=== PATIENT | male | born 1965 | race Caucasian/White ===

== ENCOUNTER 2023-03-03 00:36 | Inpatient (IN) | payer OTHER ==
[~2023-03-03] VITALS: Ht 175.3 cm; Wt 86.2 kg
[~2023-03-03 00:36] MED LIST: CEPH-588 PO; IBUP-2213 PO
[2023-03-03 00:46] VITALS: BP 131/84; PULSE 91; RESP 20; TEMP 102.3; O2SAT 98
--- NOTE | 2023-03-03 00:55 | NUR ---
PT TO BED 11 VIA W/C. DAUGHTER WITH PT.
[2023-03-03] MEDS ORDERED: ACETAMINOPHEN EXTRA STRENGTH 500 MG TAB PO ONE (01:00)
--- NOTE | 2023-03-03 01:05 | NUR ---
DR. ARECHIGA AT BEDSIDE.
--- NOTE | 2023-03-03 01:11 | NUR ---
BLOOD DRAWB ABD SENT TO LAB
[2023-03-03 01:35] LABS: BASOPHILS # (AUTO) 0.1 K/uL (0.00-0.22); BASOPHILS % (AUTO) 0.7 % (0.0-2.0); EOSINOPHILS # (AUTO) 0.1 K/uL (0-0.4); EOSINOPHILS % (AUTO) 1.1 % (0.0-4.0); HEMATOCRIT 36.8 % (36-52); HEMOGLOBIN 12.5 g/dL (12.0-18.0); LYMPHOCYTES # (AUTO) 1.5 K/uL (2.0-11.5); LYMPHOCYTES % (AUTO) 14.6 % (20.5-51.1); MEAN CORPUSCULAR HEMOGLOBIN 32 pg (27-31); MEAN CORPUSCULAR HGB CONC 34 g/dL (33-37); MONOCYTES % (AUTO) 9.3 % (1.7-9.3); NEUTROPHILS # (AUTO) 7.7 K/uL (1.8-7.7); NEUTROPHILS % (AUTO) 74.3 % (42.2-75.2); PLATELET COUNT (AUTO) 261 K/uL (140-450); RED BLOOD CELL COUNT(AUTO) 3.95 MIL/uL (4.20-6.10); RED CELL DISTRIBUTION WIDTH 13.8 % (11.6-13.7); WHITE BLOOD COUNT (AUTO) 10.3 K/uL (4.8-10.8)
[2023-03-03 01:45] LABS: ALBUMIN 2.8 g/dL (3.4-5.0); ANION GAP 14.8 (8-16); CARBON DIOXIDE 25.3 mmol/L (21-32); CREATININE 0.9 mg/dL (0.6-1.3); POTASSIUM 3.1 mmol/L (3.5-5.1); TOTAL BILIRUBIN 1.1 mg/dL (0.0-1.0)
--- NOTE | 2023-03-03 02:27 | NUR ---
X-Ray at bedside.
[2023-03-03] MEDS ORDERED: KETOROLAC 30 MG/ML VIAL IVP ONE (02:30)
[2023-03-03] MEDS ORDERED: cefTRIAXone 1,000 MG VIAL ONE (02:30)
[2023-03-03] MEDS ORDERED: POTASSIUM CHLORIDE 10 MEQ TABER PO ONE (02:55)
[2023-03-03] MEDS ORDERED: VANCOMYCIN PER PHARMACY MC PRN (04:15)
[2023-03-03] MEDS ORDERED: NACL 0.9% 1,000 ML IV ONE (04:15)
--- NOTE | 2023-03-03 04:41 | NUR ---
Patient will be admitted to care of DR. SMITH. Admited to MED SURG. Will go to room 120-B. Belongings list completed. Report to AKUA DEMPSEY.
[2023-03-03 04:52] VITALS: PULSE 66; RESP 20; O2SAT 98
--- NOTE | 2023-03-03 04:52 | NUR ---
PT TRANSPORTED FROM ER VIA WHEEL CHAIR. PT IS AAOX4 YORUBA SPEAKER. PT IS ON RA SATING 96%. PT ABLE TO AMBULATE. PT HAS IV ON LEFT FOREARM 20 GAUGE SALINE LOCK. PT CAME IN WITH COMPLAINS OF RIGHT KNEE REDNESS AND SWELLING SINCE SUNDAY. VISIBLE REDNESS AND SWELLING FROM RIGHT KNEW DESCENDING DOWN TO LEG. POC DISCUSSED. CALL LIGHT WITHIN REACH. WILL CONTINUE TO MONITOR THE PT.
[2023-03-03 05:00] VITALS: BP 129/78; PULSE 66; RESP 18; TEMP 97; O2SAT 96
[2023-03-03] MEDS ORDERED: VANCOMYCIN 1GM/DEXT 5% PREMIX 200 ML IV SCH (06:30)
--- NOTE | 2023-03-03 07:10 | NUR ---
received patient from pm nurse for continuation of care.
[2023-03-03 08:00] VITALS: BP 118/75; PULSE 71; RESP 17; TEMP 98.5; O2SAT 98
[2023-03-03] MEDS ORDERED: MAG SULF 2000 MG/WATER PREMIX 50 ML IV PRN (08:00)
[2023-03-03] MEDS: CEFEPIME 2,000 MG in DEXTROSE 5% 100 ML IV SCH ×2 (09:37→20:17)
[2023-03-03] MEDS: VANCOMYCIN 1,000 MG in DEXTROSE 5% 250 ML IV SCH ×2 (11:00→21:57)
--- NOTE | 2023-03-03 13:00 | NUR ---
PATIENT MOVED FROM 120B TO 104B DUE TO PLUMBING ISSUES. PATIENT STABLE, NO VERBALIZATION OF COMPLAINTS. COLD COMPRESS APPLIED ON KNEE
[2023-03-03 16:00] VITALS: BP 136/82; PULSE 76; RESP 20; TEMP 97.1; O2SAT 97
[2023-03-03] MEDS ORDERED: DOCUSATE SODIUM 100 MG GELCAP PO PRN (17:30)
[2023-03-03] MEDS ORDERED: ZOLPIDEM 10 MG TAB PO PRN (17:30)
[2023-03-03] MEDS ORDERED: ONDANSETRON 4 MG/2 ML VIAL IVP PRN (17:30)
[2023-03-03] MEDS ORDERED: POTASSIUM CHLORIDE 10 MEQ TABER PO PRN (17:30)
[2023-03-03] MEDS ORDERED: LORazepam 2 MG/ML VIAL IVP PRN (17:30)
[2023-03-03] MEDS: MORPHINE SULFATE 2 MG/ML SYR IVP PRN (18:37)
--- NOTE | 2023-03-03 19:21 | NUR ---
ENDORSED PATIENT TO PM NURSE FOR CONTINUATION OF CARE.
--- NOTE | 2023-03-03 19:30 | NUR ---
RECEIVED REPORT FROM DAY SHIFT RN FOR CONTINUITY OF CARE. PT IS AWAKE AND ALERT. FAMILY BY BEDSIDE. NOT IN ANY DISTRESS. DENIES PAIN AT THIS TIME. PAIN MEDICATION WAS GIVEN EARLIER BY DAY SHIFT NURSE WHICH HELPED FOR HIS RIGHT KNEE. PT HAS IV ON LEFT FOREARM 20 GAUGE SALINE LOCK. RIGHT KNEE TO WEINER REDNESS. POC DISCUSSED. WILL CONTINUE TO MONITOR THE PT.
[2023-03-03] MEDS: ACETAMINOPHEN 325 MG TAB PO PRN (19:38)
[2023-03-03 20:00] VITALS: BP 133/71; PULSE 93; RESP 18; RESP 20; TEMP 101.4; O2SAT 96
--- NOTE | 2023-03-03 21:00 | NUR ---
PT HAD FEVER IN BEGINNING OF SHIFT 101.4 TYLENOL WAS GIVEN. COOLING MEASURES TAKEN. RECHECKED PT TEMPERATURE AND DROP TO 99.4.
[2023-03-04] MEDS: MORPHINE SULFATE 2 MG/ML SYR IVP PRN (01:51)
--- NOTE | 2023-03-04 01:51 | NUR ---
PT COMPLAINED OF RIGHT KNEE PAIN 10/10. MORPHINE WAS GIVEN.
[2023-03-04 04:00] VITALS: BP 122/74; PULSE 75; RESP 18; TEMP 99; O2SAT 95
--- NOTE | 2023-03-04 07:16 | NUR ---
ENDORSED PT TO DAY SHIFT RN FOR CONTINUITY OF CARE. PT IS STABLE.
--- NOTE | 2023-03-04 07:40 | NUR ---
RECEIVED PATIENT FROM PM NURSE FOR CONTINUATION OF CARE
[2023-03-04 07:44] LABS: BASOPHILS # (AUTO) 0.1 K/uL (0.00-0.22); BASOPHILS % (AUTO) 0.5 % (0.0-2.0); EOSINOPHILS # (AUTO) 0.2 K/uL (0-0.4); EOSINOPHILS % (AUTO) 1.5 % (0.0-4.0); HEMATOCRIT 37.7 % (36-52); HEMOGLOBIN 12.5 g/dL (12.0-18.0); LYMPHOCYTES # (AUTO) 2.3 K/uL (2.0-11.5); LYMPHOCYTES % (AUTO) 20.1 % (20.5-51.1); MEAN CORPUSCULAR HEMOGLOBIN 31 pg (27-31); MEAN CORPUSCULAR HGB CONC 33 g/dL (33-37); MEAN CORPUSCULAR VOLUME 93.5 fL (80-94); MONOCYTES % (AUTO) 9.2 % (1.7-9.3); NEUTROPHILS # (AUTO) 7.7 K/uL (1.8-7.7); NEUTROPHILS % (AUTO) 68.7 % (42.2-75.2); PLATELET COUNT (AUTO) 321 K/uL (140-450); RED BLOOD CELL COUNT(AUTO) 4.04 MIL/uL (4.20-6.10); RED CELL DISTRIBUTION WIDTH 13.8 % (11.6-13.7); WHITE BLOOD COUNT (AUTO) 11.3 K/uL (4.8-10.8)
[2023-03-04 07:47] LABS: ANION GAP 11.2 (8-16); CARBON DIOXIDE 28.5 mmol/L (21-32); CREATININE 0.8 mg/dL (0.6-1.3); POTASSIUM 3.7 mmol/L (3.5-5.1)
[2023-03-04 08:00] VITALS: PULSE 82; RESP 20; TEMP 99.8; O2SAT 97
--- NOTE | 2023-03-04 09:35 | NUR ---
PATIENT HAS BEEN SCREENED AND CATEGORIZED LOW NUTRITION RISK. PATIENT WILL BE SEEN WITHIN 7 DAYS OF ADMISSION. 03/03/23-03/10/[address]
[2023-03-04] MEDS: CEFEPIME 2,000 MG in DEXTROSE 5% 100 ML IV SCH ×2 (10:08→20:25)
[2023-03-04] MEDS: VANCOMYCIN 1,000 MG in DEXTROSE 5% 250 ML IV SCH ×2 (11:05→19:00)
--- NOTE | 2023-03-04 15:08 | NUR ---
03/04/23 RD INITIAL ASSESSMENT COMPLETED. PLEASE REFER TO NUTRITION ASSESSMENT UNDER CARE ACTIVITY FOR ESTIMATED NUTRITIONAL NEEDS. 1. CONTINUE [facility] DIET TOLERATED 2. MONITOR BLOOD GLUCOSE 3. RD TO FOLLOW-UP 3-5 DAYS, MODERATE RISK DREW LORA RD Addendum: 03/04/23 at [address] NOTE WRITTEN IN ERROR FOR WRONG PATIENT
[2023-03-04 16:00] VITALS: BP 127/85; PULSE 78; RESP 18; TEMP 97.9; O2SAT 98
--- NOTE | 2023-03-04 19:20 | NUR ---
RECEIVED PT REPORT FROM DAY SHIFT NURSE. PT IS AWAKE AND ALERT. PT IS EGYPTIAN SPEAKING. PT ABLE TO AMBULATE TO RESTROOM INDEPENDENTLY. IV SITE IS ON LEFT UPPER ARM 18G, INTACT AND PATENT. IV FLUID NORMAL SALINE INFUSING WELL AT 100ML/HR. PT IS CONTINENT.
--- NOTE | 2023-03-04 19:20 | NUR ---
ENDORSED PATIENT TO PM NURSE FOR CONTINUATION OF CARE
[2023-03-04 20:00] VITALS: BP 134/87; PULSE 78; RESP 18; TEMP 36.2; O2SAT 97
[2023-03-05] MEDS: VANCOMYCIN 1,000 MG in DEXTROSE 5% 250 ML IV SCH ×2 (03:18→11:25)
[2023-03-05 06:55] LABS: BASOPHILS # (AUTO) 0.1 K/uL (0.00-0.22); BASOPHILS % (AUTO) 0.9 % (0.0-2.0); EOSINOPHILS # (AUTO) 0.2 K/uL (0-0.4); EOSINOPHILS % (AUTO) 2.2 % (0.0-4.0); HEMATOCRIT 37.8 % (36-52); HEMOGLOBIN 12.8 g/dL (12.0-18.0); LYMPHOCYTES # (AUTO) 2.2 K/uL (2.0-11.5); LYMPHOCYTES % (AUTO) 21.2 % (20.5-51.1); MEAN CORPUSCULAR HEMOGLOBIN 32 pg (27-31); MEAN CORPUSCULAR HGB CONC 34 g/dL (33-37); MEAN CORPUSCULAR VOLUME 93.9 fL (80-94); MONOCYTES # (AUTO) 0.9 K/uL (0.8-1.0); MONOCYTES % (AUTO) 9.1 % (1.7-9.3); NEUTROPHILS # (AUTO) 6.9 K/uL (1.8-7.7); NEUTROPHILS % (AUTO) 66.6 % (42.2-75.2); PLATELET COUNT (AUTO) 357 K/uL (140-450); RED BLOOD CELL COUNT(AUTO) 4.03 MIL/uL (4.20-6.10); RED CELL DISTRIBUTION WIDTH 13.8 % (11.6-13.7); WHITE BLOOD COUNT (AUTO) 10.3 K/uL (4.8-10.8)
[2023-03-05 06:57] LABS: ANION GAP 12.1 (8-16); CARBON DIOXIDE 27.5 mmol/L (21-32); CREATININE 0.7 mg/dL (0.6-1.3); POTASSIUM 3.6 mmol/L (3.5-5.1)
[2023-03-05 08:00] VITALS: BP 140/72; PULSE 63; RESP 18; TEMP 99.1; O2SAT 97; O2SAT 98
[2023-03-05] MEDS: CEFEPIME 2,000 MG in DEXTROSE 5% 100 ML IV SCH ×2 (08:45→22:05)
[2023-03-05] MEDS: metroNIDAZOLE 500 MG/NS PREMIX 100 ML IV SCH ×2 (13:56→22:10)
--- NOTE | 2023-03-05 13:57 | NUR ---
Jackhammer Operator SUPPLY ASSISTANT met with pt. at bedside. Pt. was kind and agreed to this interview. Pt. did not have any other health concerns. Pt. only had his current health issue with Cellulitis and the spider bite. Pt. did not know what cellulitis was. SUPPLY ASSISTANT asked pt. who his primary doctor was. Pt. stated he does not have one, because he never goes to the doctors. SUPPLY ASSISTANT told him how to get a primary with his [facility] insurance, [email or web address]. SUPPLY ASSISTANT wrote down the name phone number and policy number for him. SUPPLY ASSISTANT asked pt. if he had any questions or concerns. Pt. did not. SUPPLY ASSISTANT will remain available as needed.
[2023-03-05 16:00] VITALS: BP 137/82; PULSE 69; RESP 18; TEMP 98.4; O2SAT 97
--- NOTE | 2023-03-05 19:15 | NUR ---
ENDORSED PT TO OBSTETRICIAN NURSE FOR CONTINUITY OF CARE. AWAITING CT W/ CONTRAST , RADIOLOGY WAS CALLED AND INFORMED ME THAT THEY WILL COME AROUND 1900. OF WRITING, PT IS STILL IN THE ROOM. INFORMED NIGHT NURSE. PT IS STABLE, NO SIGN OF DISTRESS. CALL LIGHT WITHIN REACH.
--- NOTE | 2023-03-05 19:16 | NUR ---
RECEIVED REPORT FROM KE EVANGELISTA FOR CONTINUITY OF CARE. PT A/A/O. AMBULATORY. ABLE TO COMMUNICATE NEEDS. SITTING IN BED. RESPIRATIONS EVEN AND UNLABORED ON RA. NO DISTRESS NOTED. REPORTED TOLERABLE RIGHT KNEE PAIN. GONSALO IN SITE INFUSING IVF. POC DISCUSSED. PT SCHEDULED FOR CT SCAN OF LOWER EXT TONIGHT. REPORT GIVEN TO KE ARANGO. CALL LIGHT WITHIN REACH. SAFETY PRECAUTIONS IN PLACE.
[2023-03-05 19:49] VITALS: PULSE 69; RESP 18; O2SAT 97
--- NOTE | 2023-03-05 19:55 | NUR ---
Patient's Plan of Care was discussed and reviewed with PLATEN BUILDER UP: NOHEMY ROSAS
[2023-03-05 20:00] VITALS: BP 142/82; PULSE 80; RESP 18; TEMP 97.1; O2SAT 97
--- NOTE | 2023-03-05 20:53 | NUR ---
ADMINISTERED DUE MED. PT TOLERATED WELL.
--- NOTE | 2023-03-05 22:15 | NUR ---
PT WAS PICKED-UP FOR CT SCAN OF LOWER EXT. PT IS STABLE.
--- NOTE | 2023-03-05 22:50 | NUR ---
PT BACK FROM CT. PT SITUATED COMFORTABLY IN BED. NO DISTRESS NOTED.
[2023-03-05] MEDS: VANCOMYCIN 1,500 MG in DEXTROSE 5% 500 ML IV SCH (23:00)
--- NOTE | 2023-03-05 23:05 | NUR ---
VERIFIED WITH SHELL FROM [facility], [place] TO GIVE 2300 SCHEDULED VANCO. KE ARANGO WAS INFORMED.
[2023-03-05] MEDS ORDERED: VANCOMYCIN 500 MG VIAL ONE (23:53)
[2023-03-06] MEDS ORDERED: VANCOMYCIN 1,000 MG VIAL ONE (00:01)
[2023-03-06 04:00] VITALS: BP 134/80; PULSE 73; RESP 18; TEMP 98; O2SAT 98
[2023-03-06] MEDS: metroNIDAZOLE 500 MG/NS PREMIX 100 ML IV SCH ×3 (05:57→21:17)
--- NOTE | 2023-03-06 06:21 | NUR ---
PT SLEEPING. EASILY AROUSABLE BY VERBAL STIMULI. NO DISTRESS NOTED. ALL NEEDS MET THROUGHOUT SHIFT.
[2023-03-06 06:33] LABS: BASOPHILS # (AUTO) 0.1 K/uL (0.00-0.22); BASOPHILS % (AUTO) 0.5 % (0.0-2.0); EOSINOPHILS # (AUTO) 0.2 K/uL (0-0.4); EOSINOPHILS % (AUTO) 2.1 % (0.0-4.0); HEMATOCRIT 39.2 % (36-52); HEMOGLOBIN 13.1 g/dL (12.0-18.0); LYMPHOCYTES # (AUTO) 2.3 K/uL (2.0-11.5); LYMPHOCYTES % (AUTO) 22.9 % (20.5-51.1); MEAN CORPUSCULAR HEMOGLOBIN 31 pg (27-31); MEAN CORPUSCULAR HGB CONC 34 g/dL (33-37); MEAN CORPUSCULAR VOLUME 93.7 fL (80-94); MONOCYTES # (AUTO) 0.8 K/uL (0.8-1.0); MONOCYTES % (AUTO) 8.5 % (1.7-9.3); NEUTROPHILS # (AUTO) 6.6 K/uL (1.8-7.7); PLATELET COUNT (AUTO) 379 K/uL (140-450); RED BLOOD CELL COUNT(AUTO) 4.19 MIL/uL (4.20-6.10); RED CELL DISTRIBUTION WIDTH 13.9 % (11.6-13.7)
[2023-03-06 07:17] LABS: ANION GAP 13.6 (8-16); CARBON DIOXIDE 29.2 mmol/L (21-32); CREATININE 0.8 mg/dL (0.6-1.3); POTASSIUM 3.8 mmol/L (3.5-5.1)
--- NOTE | 2023-03-06 07:19 | NUR ---
receive the patient from the automotive tire worker rn yemi yemeni speaking in 4m 104B with admitting diagnosis of cellulitis of the right knee
--- NOTE | 2023-03-06 07:33 | NUR ---
GAVE BEDSIDE REPORT TO KE LEAVITT. PT IS STABLE.
[2023-03-06 07:46] VITALS: TEMP 97.8
[2023-03-06 07:47] VITALS: PULSE 67; RESP 20; O2SAT 98
--- NOTE | 2023-03-06 07:58 | NUR ---
Md Rao called .probable aspiration of the right knee . keep NPO patient at lunch
--- NOTE | 2023-03-06 08:27 | NUR ---
Md Rao order NPO shu ponce 05/06 for right knee abscess
[2023-03-06] MEDS: CEFEPIME 2,000 MG in DEXTROSE 5% 100 ML IV SCH ×2 (08:53→21:17)
--- NOTE | 2023-03-06 09:03 | NUR ---
NPO TODAY . MD BARNETT . WILL MIGHT DO ASPIRATION OF THE RIGHT KNEE
[2023-03-06] MEDS: VANCOMYCIN 1,500 MG in DEXTROSE 5% 500 ML IV SCH (11:19)
--- NOTE | 2023-03-06 11:20 | NUR ---
md silverman surgeon decided not to do aspiration of the right knee . primary md rivera made aware . regular diet was back to the patient diet
--- NOTE | 2023-03-06 16:32 | NUR ---
DC PLANNING A 57 YO MALE PATIENT PRESENTING TO ED WITH WORSENING REDNESS AND SWELLING TO THE RIGHT KNEE SUSPECTING INSECT BITE A WEEK AGO.PATIENT WAS ADMITTED HERE ON 02/26 AND WAS DISCHARGED WITH KEFLEX AND MOTRIN.SYMPTOMS ARE WORSENING DESPITE TAKING MEDS FOR 5 DAYS.PATIENT WAS STARTED ON VANCO AND CEFEPIME INITIALLY.VANCO WAS DISCONTINUED AND WAS REPLACED BY FLAGYL.BLOOD CULTURE (-).NO MRSA ISOLATED.PAIN CONTROL WITH MSO4. DC PLAN- DC HOME WHEN PATIENT RESPONDS TO TX.CM TO FOLLOW. Addendum: 03/06/23 at 1641 by JASMIN MCINTYRE CM LATE ENTRY SURGERY WAS CONSULTED FOR POSSIBLE ASPIRATION BUT NO OPERATIVE MANAGEMENT INDICATED PER . Addendum: 03/07/23 at 1555 by JASMIN MCINTYRE CM DC PLANNING PATIENT WILL BE DISCHARGED WITH ORAL ANTIBIOTICS.
--- NOTE | 2023-03-06 19:18 | NUR ---
will endorse to outdoor advertising leasing agent rn Shade for continuity of care . still for antibiotics for cellulitis
[2023-03-06 20:00] VITALS: BP 134/87; PULSE 82; RESP 18; TEMP 98.8; O2SAT 97
[2023-03-06] MEDS: ACETAMINOPHEN 325 MG TAB PO PRN (21:17)
[2023-03-07 04:00] VITALS: BP 123/75; PULSE 65; RESP 16; TEMP 98.5; O2SAT 93
[2023-03-07] MEDS: metroNIDAZOLE 500 MG/NS PREMIX 100 ML IV SCH (05:35)
[2023-03-07 06:53] LABS: ANION GAP 12.4 (8-16); CARBON DIOXIDE 27.8 mmol/L (21-32); CREATININE 0.8 mg/dL (0.6-1.3); POTASSIUM 4.2 mmol/L (3.5-5.1)
[2023-03-07 07:05] LABS: BASOPHILS % (AUTO) 0.4 % (0.0-2.0); EOSINOPHILS # (AUTO) 0.2 K/uL (0-0.4); HEMATOCRIT 36.5 % (36-52); HEMOGLOBIN 12.5 g/dL (12.0-18.0); LYMPHOCYTES # (AUTO) 2.2 K/uL (2.0-11.5); LYMPHOCYTES % (AUTO) 20.7 % (20.5-51.1); MEAN CORPUSCULAR HEMOGLOBIN 32 pg (27-31); MEAN CORPUSCULAR HGB CONC 34 g/dL (33-37); MEAN CORPUSCULAR VOLUME 94.5 fL (80-94); MONOCYTES # (AUTO) 0.7 K/uL (0.8-1.0); NEUTROPHILS # (AUTO) 7.4 K/uL (1.8-7.7); NEUTROPHILS % (AUTO) 69.9 % (42.2-75.2); PLATELET COUNT (AUTO) 396 K/uL (140-450); RED BLOOD CELL COUNT(AUTO) 3.87 MIL/uL (4.20-6.10); RED CELL DISTRIBUTION WIDTH 13.6 % (11.6-13.7); WHITE BLOOD COUNT (AUTO) 10.6 K/uL (4.8-10.8)
--- NOTE | 2023-03-07 07:10 | NUR ---
RECEIVED REPORT FROM ACTIVITIES SPECIALIST NURSE FOR CONTINUITY OF CARE. PT IN BED AT THIS TIME, AWAKE. RESPIRATIONS ARE EVEN AND UNLABORED ON ROOM AIR. NO SIGNS OF DISTRESS NOTED. PT IS ALERT AND ORIENTED X4, ABLE TO VERBALIZE NEEDS, ABLE TO FOLLOW COMMANDS. PT IS YI SPEAKING. ABD IS NONTENDER, NONDISTENDED WITH BOWEL SOUNDS PRESENT. PT IS ON REGULAR DIET, TOLERATING WELL. PT IS CONTINENT OF BOWEL AND BLADDER. PT HAS IV TO L UPPER ARM, 18G. PT R KNEE HAS SOME FLUID NOTED TO SKIN WHERE PT STATES HE RECEIVED A SPIDER BITE. DENIES PAIN AT THIS TIME. SKIN IS WARM, AND DRY. CALL LIGHT WITHIN REACH. ALL SAFETY MEASURES IN PLACE.
[2023-03-07 08:00] VITALS: BP 128/87; PULSE 91; PULSE 92; RESP 18; RESP 20; TEMP 97.8; O2SAT 97; O2SAT 98
--- NOTE | 2023-03-07 09:50 | NUR ---
ADMINISTERED ALL SCHEDULED MEDICATIONS. EDUCATED PT ON MEDS ADMINISTERED. ANSWERED ALL QUESTIONS. PT VERBALIZED UNDERSTANDING. PT TOLERATED WELL.
[2023-03-07] MEDS ORDERED: CEPH-588 PO (11:43)
--- NOTE | 2023-03-07 13:45 | NUR ---
PT PRESSED CALL LIGHT, ASKING STAFF TO "MAKE SURE I GET ALL MY MEDICINE BEFORE I GO HOME. EVEN IF IT IS NOT DUE YET. I WANT TO MAKE SURE I GET IT ALL". EDUCATED PT ON MEDICATION ADMINISTRATION SCHEDULE, WELL INFORMED PT HE WILL BE RECEIVING ALL APPROPRIATE MEDICATION WHEN IT IS DUE. PT VERBALIZED UNDERSTANDING. STATED THAT HE WAS "SORRY, JUST NERVOUS".
[2023-03-07 14:59] VITALS: BP 128/87; PULSE 91; RESP 20; TEMP 97.8
--- NOTE | 2023-03-07 16:41 | NUR ---
PT HAS DISCHARGE ORDER IN PLACE. WENT OVER DISCHARGE PAPERWORK WITH PT. ANSWERED ALL QUESTIONS. REMOVED IV. IV CATHETER INTACT. PT SIGNED ALL PAPERWORK. ALL BELONGINGS TAKEN UPON DISCHARGE. PT DISCHARGED HOME WITH FAMILY.
== END 2023-03-07 16:50 | disposition home or self-care (01) | DRG 720 ==
LOC: MED 00:36 → MTU 04:20
PROVIDERS: ADMIT Family Medicine; ATTEND Family Medicine
DX: A41.9 Sepsis, unspecified organism (principal); E44.1 Mild protein-calorie malnutrition; L03.115 Cellulitis of right lower limb; E87.6 Hypokalemia; L02.415 Cutaneous abscess of right lower limb; Z68.28 Body mass index [BMI] 28.0-28.9, adult; S80.262A Insect bite (nonvenomous), left knee, initial encounter
CPT/HCPCS: 36415; 73560; 73701; 80048; 80053; 80202; 83036; 83735; 85025; 85651; 86140; 87040; 87081; 96365; 96375; 99285; J0690; J0692; J0696; J1644; J1885; J2270; J3370; J3490; J7060; Q0092; Q9967